=== PATIENT | male | born 1965 | race Caucasian/White ===

== ENCOUNTER 2019-01-30 15:16 | Emergency (ER) | payer BC, OTHER ==
[~2019-01-30] VITALS: Ht 175.3 cm; Wt 99.8 kg
[2019-01-30 15:49] LABS: URINE BILIRUBIN NEGATIVE (Negative); URINE BLOOD 3+ (Negative); URINE CLARITY SL CLOUDY; URINE COLOR YELLOW; URINE GLUCOSE-RANDOM* NEGATIVE (Negative); URINE KETONES NEGATIVE (Negative); URINE LEUKOCYTES-REFLEX NEGATIVE (Negative); URINE NITRITE-REFLEX NEGATIVE (Negative); URINE PROTEIN (DIPSTICK) 1+ (Negative); URINE SPECIFIC GRAVITY <= 1.005 (1.005-1.035); URINE UROBILINOGEN 0.2 E.U./dl (0.2-1.0)
[2019-01-30 16:06] LABS: AMORPHOUS URATES Few /LPF (None Seen); BACTERIA-REFLEX 1-9 Few /HPF (None Seen); CASTS None Seen /LPF (None Seen); SQUAMOUS None Seen /LPF (0-3); URINE RBC >20 Many /HPF (0-2); URINE WBC-REFLEX 0-5 Rare /HPF (0-5)
[2019-01-30 16:49] LABS: ABSOLUTE NEUTROPHILS 5.6 thou/uL (1.4-8.2); EOSINOPHILS 2.5 % (0.0-3.0); HEMATOCRIT 46.2 % (42.0-52.0); HEMOGLOBIN 15.5 gm/dL (14.0-18.0); LYMPHOCYTES 22.7 % (24.0-44.0); MCH 29.6 pg (26.0-34.0); MCHC 33.6 g/dL (28.0-37.0); MONOCYTES 8.9 % (1.0-8.0); PLATELET COUNT 207 thou/uL (150-400); POLYS 64.9 % (36.0-66.0); RBC 5.24 mil/uL (4.50-6.00); RDW 13.8 % (10.5-14.5); WBC 8.6 thou/uL (4.0-11.0)
[2019-01-30 16:56] LABS: CALCIUM 9.7 mg/dL (8.5-10.1); POTASSIUM 3.9 mmol/L (3.5-5.1)
[2019-01-30] MEDS ORDERED: ZYRTEC-D TABLE1 EAC1 PO (17:09)
[2019-01-30] MEDS ORDERED: MACROBID 100 M100 MG PO (17:12)
[2019-01-30 17:49] VITALS: BP 113/84
== END 2019-01-30 17:35 | disposition home or self-care (01) ==
LOC: ER 15:16
PROVIDERS: Emergency Medicine
DX: R31.9 Hematuria, unspecified (principal); Z88.0 Allergy status to penicillin; Z88.1 Allergy status to other antibiotic agents